=== PATIENT | female | born 1990 | race Caucasian/White ===

== ENCOUNTER 2023-07-14 06:48 | Day surgery (SDC) | payer BC ==
[2023-07-12 10:51] LABS: Absolute Eosinophils 0.2 K/uL (0-0.5); Absolute Lymphocytes (CBC) 2.7 K/uL (0.7-4.9); Absolute Monocytes 0.4 K/uL (0.1-1.3); Absolute Neutrophil 5.6 K/uL (1.8-8.0); Basophils % 0.4 % (0-1.3); Eosinophils % 2.4 % (0-4.4); Hematocrit 46.6 % (36.0-45.0); Hemoglobin 16.2 g/dL (12.0-15.0); Lymphocytes % 30.5 % (15.3-44.8); MCH 30.6 pg (27.0-35.0); MCHC 34.8 g/dL (32.0-36.0); MCV 87.9 fL (80-100); MPV 7.9 fL (7.6-11.3); Monocytes % 4.4 % (3.3-12.3); Neutrophils % 62.3 % (41.7-73.7); Nucleated Red Blood Cells % 0.2 % (0-0); Platelets 307 thou/uL (152-406); Red Cell Distribution Width 13.7 % (12.1-15.2)
--- NOTE | 2023-07-12 11:01 | RAD REPORT ---
EXAM DESCRIPTION: RAD - Chest Pa And Lat (2 Views) - 07/12/2023 10:47 am CLINICAL HISTORY: Pre op pending carpal tunnel release Chest pain. COMPARISON: No comparisons FINDINGS: The lungs are clear. The heart is normal in size. No displaced fractures. IMPRESSION: No acute or concerning finding suspected.
[2023-07-12 11:21] LABS: PT Prothrombin Time 10.9 SECONDS (9.5-12.5); PTT, Activated Partial Thromb 33.4 SECONDS (24.3-36.9); Protime INR 0.99
[2023-07-14] MEDS: Ringers Lactate 1,000 ML IV ONE (07:23)
[2023-07-14] MEDS: FAMOTIDINE 20 MG/2 ML VIAL IV ONE (07:23)
[2023-07-14] MEDS ORDERED: propofoL 200 MG/20 ML VIAL IV ONE (07:37)
[2023-07-14] MEDS ORDERED: FENTANYL CITR 100 MCG/2 ML ONE (07:38)
[2023-07-14] MEDS ORDERED: MIDAZOLAM HCL 2 MG/2 ML INJ ONE (07:38)
[2023-07-14] MEDS ORDERED: LIDOCAINE 2% MPF 5 ML VIAL ONE (07:38)
[2023-07-14] MEDS ORDERED: ONDANSETRON 4 MG/2 ML VIAL ONE (07:38)
[2023-07-14] MEDS: CEFAZOLIN SODIUM 2 GM/VIAL ONE (08:26)
[2023-07-14] MEDS ORDERED: dexAMETHasone 10 MG/ML VIAL ONE (08:26)
[2023-07-14] MEDS: BUPIVACAINE 0.25% PF 10 ML VIAL ONE (08:55)
--- NOTE | 2023-07-14 09:12 | P.BOP ---
Preoperative diagnosis: right carpal tunnel syndrome Postoperative diagnosis: same Primary procedure: right open carpal tunnel release Dry Cleaning Counter Clerk: NONE,NONE Estimated blood loss: 1 cc Specimen: none Findings: see dictation Anesthesia: General Complications: None Implants: none Fluids & blood products: per anesthesia record Transferred to: Recovery Room Condition: Good
[2023-07-14] MEDS: FENTANYL CITR 100 MCG/2 ML ONE (09:16)
[2023-07-14] MEDS: PROMETHAZINE INJ 25 MG/ML AMP ONE (09:27)
--- NOTE | 2023-07-14 09:37 | P.OP ---
Preoperative diagnosis: Right carpal tunnel syndrome Postoperative diagnosis: Same Primary procedure: right open carpal tunnel release Anesthesia: General Estimated blood loss: 1 cc Specimen: None Findings: see dictation Operative Technique: Reason for Surgery: Kelley had physical exam findings as well as EMG findings consistent with right carpal tunnel syndrome. I discussed with the patient at length risks and benefits associated with the procedure. She expressed understanding and elected proceed with operative treatment. Description of Procedure: After informed consent was obtained the patient was identified in the preoperative holding area. The right upper extremity was marked. Patient then brought back to the operating room transferred the operative table in supine fashion and placed under anesthesia. The right upper extremity was exsanguinated and the tourniquet was inflated to 250 mmHg. Approximately a 3 cm longitudinal incision was made just ulnar to the thenar crease. Dissection was then taken down to the palmar fascia which was identified. A [place] elevator was then placed just deep to the palmar fascia to protect the median nerve at all times. A 15 blade was then used to release the palmar fascia and transverse carpal ligament leaving the [place] elevator to protect the nerve at all times. Any remaining fascial bands were then released using a blunt tip Metzenbaum scissor. The tips were him superficially to protect the median nerve at all times. The wound was then irrigated thoroughly with normal saline. The skin was approximated using a 5-0 Prolene. Sterile dressings were applied and patient was awakened and transferred to PACU in stable condition. Postoperative plan: The patient will follow-up in 1 to 2 weeks for wound check and suture removal. She may begin to work on range of motion exercises at this time. Complications: None Implants: none Fluids & blood products: per anesthesia record Transferred to: Recovery Room Condition: Good
[2023-07-14] MEDS: TRAMADOL HCL 50 MG TAB ONE (10:24)
[2023-07-14 12:37] VITALS: BP 95/61; TEMP 97.2; O2SAT 98
--- NOTE | 2023-07-14 16:58 | EKG ---
Test Date: 2023-07-12 Test Time: 10:30:54 Opera Singer: JESSICA MEASUREMENT RESULTS: Intervals: Rate: 83 VT: 156 QRSD: 88 QT: 352 QTc: 413 [place]: P: 74 VT: 156 QRS: 89 T: 53 INTERPRETIVE STATEMENTS: Normal sinus rhythm Normal ECG No previous ECG available for comparison Electronically Signed On 07-14-23 16:50:37 CDT by Corby Varner
== END 2023-07-14 10:38 | disposition home or self-care (01) ==
LOC: OR 06:48
PROVIDERS: ATTEND Orthopaedic Surgery Sports Medicine
PROC: 01N50ZZ Release Median Nerve, Open Approach (ICD-10-PCS; principal; 2023-07-14 08:00)
DX: G56.01 Carpal tunnel syndrome, right upper limb (principal)
CPT/HCPCS: 93005; 85025; 80048; 36415; 81025; 85610; 85730; 71046; 64721; J2550; J2704; J2001; J2250; J3010 ×2; J1100; J2405; J7120

== ENCOUNTER 2024-04-05 08:17 | Day surgery (SDC) | payer BC ==
[2024-04-02 10:35] LABS: Absolute Eosinophils 0.2 K/uL (0-0.5); Absolute Lymphocytes (CBC) 3.8 K/uL (0.7-4.9); Absolute Monocytes 0.6 K/uL (0.1-1.3); Absolute Neutrophil 5.6 K/uL (1.8-8.0); Basophils % 0.5 % (0-1.3); Eosinophils % 1.8 % (0-4.4); Hemoglobin 17.2 g/dL (12.0-15.0); Lymphocytes % 37.1 % (15.3-44.8); MCH 30.3 pg (27.0-35.0); MCHC 34.3 g/dL (32.0-36.0); MCV 88.2 fL (80-100); Monocytes % 5.7 % (3.3-12.3); Neutrophils % 54.9 % (41.7-73.7); Nucleated Red Blood Cells % 0.2 % (0-0); Platelets 315 thou/uL (152-406); RBC Red Blood Cell Count 5.67 M/uL (3.86-4.86); Red Cell Distribution Width 13.5 % (12.1-15.2)
[2024-04-02 10:46] LABS: PTT, Activated Partial Thromb 32.1 SECONDS (24.3-36.9); Protime INR 1.05
[2024-04-02 10:52] LABS: Anion Gap 6.8 mEq/L (5.0-15.0); Potassium 3.8 mEq/L (3.5-5.1)
--- NOTE | 2024-04-02 11:00 | RAD REPORT ---
Procedure: Chest Pa And Lat (2 Views) HISTORY: Preop COMPARISON: 2023 FINDINGS: The lungs appear clear of acute infiltrate. No significant pleural effusion noted. The heart is normal size. IMPRESSION: No acute abnormality is displayed.
[2024-04-05] MEDS: NA CHLORIDE 0.9% 1,000 ML ONE (08:55)
[2024-04-05] MEDS ORDERED: MIDAZOLAM HCL 2 MG/2 ML INJ ONE (10:09)
[2024-04-05] MEDS ORDERED: FENTANYL CITR 100 MCG/2 ML ONE (10:09)
[2024-04-05] MEDS ORDERED: LIDOCAINE 1% MPF 5 ML VIAL ONE (10:09)
[2024-04-05] MEDS ORDERED: propofoL 200 MG/20 ML VIAL IV ONE (10:09)
[2024-04-05] MEDS ORDERED: KETOROLAC 30 MG/ML INJ ONE (10:09)
[2024-04-05] MEDS ORDERED: ONDANSETRON 4 MG/2 ML VIAL ONE (10:09)
[2024-04-05] MEDS: CEFAZOLIN SODIUM 2 GM/VIAL ONE (10:30)
[2024-04-05] MEDS: BUPIVACAINE 0.25% PF 10 ML VIAL ONE (10:49)
--- NOTE | 2024-04-05 11:10 | P.BOP ---
Preoperative diagnosis: Left carpal tunnel syndrome Postoperative diagnosis: Same Primary procedure: Left open carpal tunnel release Coke Handling Supervisor: NONE,NONE Estimated blood loss: 2 cc Specimen: None Findings: See dictation Anesthesia: General Complications: None Implants: None Fluids & blood products: Per anesthesia record Transferred to: Recovery Room Condition: Good
--- NOTE | 2024-04-05 11:12 | P.OP ---
Preoperative diagnosis: Left carpal tunnel syndrome Postoperative diagnosis: Same Primary procedure: Left open carpal tunnel release Anesthesia: General Estimated blood loss: 2 cc Specimen: None Findings: See dictation Operative Technique: Reason for Surgery: Kelley had physical exam findings as well as EMG findings consistent with left carpal tunnel syndrome. I discussed with the patient at length risks and benefits associated with the procedure. She expressed understanding and elected proceed with operative treatment. Description of Procedure: After informed consent was obtained the patient was identified in the preoperative holding area. The left upper extremity was marked patient. Patient then brought back to the operating room transferred the operative table in supine fashion and placed under anesthesia. The left upper extremity was exsanguinated and the tourniquet was inflated to 250 mmHg. Approximately a 3 cm longitudinal incision was made just ulnar to the thenar crease. Dissection was then taken down to the palmar fascia which was identified. A [place] elevator was then placed just deep to the palmar fascia to protect the median nerve at all times. A 15 blade was then used to release the palmar fascia and transverse carpal ligament leaving the [place] elevator to protect the nerve at all times. Any remaining fascial bands were then released using a blunt tip Metzenbaum scissor. The tips were him superficially to protect the median nerve at all times. The wound was then irrigated thoroughly with normal saline. The skin was approximated using a 5-0 Prolene. Sterile dressings were applied and patient was awakened and transferred to PACU in stable condition. Postoperative plan: The patient will follow-up in 1 to 2 weeks for wound check and suture removal. She may begin to work on range of motion exercises at this time. Complications: None Implants: None Fluids & blood products: Per anesthesia record Transferred to: Recovery Room Condition: Good
[2024-04-05 11:41] LABS: Urine Specific Gravity/Preg >1.030 (1.005-1.030)
[2024-04-05] MEDS ORDERED: TRAMADOL HCL 50 MG TAB ONE (11:49)
[2024-04-05 13:44] VITALS: BP 112/60; TEMP 97.5; O2SAT 97
--- NOTE | 2024-04-08 12:29 | EKG ---
Test Date: 2024-04-02 Test Time: 11:18:49 Civil Drafting Technician: EDGAR MEASUREMENT RESULTS: Intervals: Rate: 84 DC: 154 QRSD: 88 QT: 352 QTc: 415 [place]: P: 65 DC: 154 QRS: 64 T: 33 INTERPRETIVE STATEMENTS: Normal sinus rhythm Normal ECG Compared to ECG 07/12/2023 10:30:54 No significant changes Electronically Signed On 04-08-24 12:17:38 CLERICAL PROOFREADER by Luke Lan
== END 2024-04-05 12:41 | disposition home or self-care (01) ==
LOC: OR 08:17
PROVIDERS: ATTEND Orthopaedic Surgery Sports Medicine
PROC: 01N50ZZ Release Median Nerve, Open Approach (ICD-10-PCS; principal; 2024-04-05 10:17)
DX: G56.02 Carpal tunnel syndrome, left upper limb (principal)
CPT/HCPCS: 93005; 85025; 80048; 36415; 81025; 85610; 85730; 71046; 64721; J2704; J2003; J2250; J3010; J2405; J7030